=== PATIENT | female | born 1940 | race Caucasian/White ===

== ENCOUNTER 2018-04-09 18:12 | Inpatient (IN) ==
[2018-04-09] MEDS ORDERED: KETOROLAC 30 MG/1 ML VIAL IV STA (19:43)
[2018-04-09 21:06] LABS: Basophils % 0.5 % (0.0-0.8); Eosinophils % 0.7 % (0.00-10.9); Hematocrit 36.5 VOL% (35.7-47.0); Hemoglobin 11.8 GM/DL (12.0-16.0); Immature Granulocytes % 0.5 %; Immature Granulocytes Absolute 0.02 #; Lymphocytes # 0.4 10*3/uL (1.4-4.0); Mean Corpuscular HGB Conc 32.3 GM/DL (32-36); Mean Corpuscular Hemoglobin 30 PG (27-34); Mean Corpuscular Volume 94.1 FL (87-102); Monocytes # 0.3 10*3/uL (0.11-0.8); Monocytes % 6.5 % (1.7-12.7); Neutrophils # 3.5 10*3/uL (1.4-7.4); Neutrophils % 81.8 % (38.7-73.9); Platelet Count 171 T/CUMM (130-400); Red Blood Count 3.88 MC/CUMM (3.8-5.5); Red Cell Distribution Width 13.8 % (9.3-17.3); White Blood Count 4.3 T/CUMM (4-12)
[2018-04-09 21:40] LABS: Alanine Aminotransferase 15 U/L (13-56); Albumin 3.2 G/DL (3.4-5.0); Alkaline Phosphatase 111 U/L (45-117); Aspartate Amino Transferase 29 U/L (0-37); Bilirubin,Total < 0.39 MG/DL (0.2-1.0); Blood Urea Nitrogen 14 MG/DL (7-18); Calcium 7.7 MG/DL (8.5-10.1); Glucose 98 MG/DL (74-106); Osmolality,Calculated 288.7 MOS/KG (273-304); Potassium 3.5 MMOL/L (3.5-5.1); Sodium 145 MMOL/L (136-145); Total Protein 6.2 G/DL (6.4-8.3)
[2018-04-09 22:10] LABS: Apearance,Urine CLEAR (Clear); Bilirubin,Urine Negative (Negative); Blood, Urine Small mg/dL (Negative); Glucose,Urine (UA) Negative (Negative); Ketones,Urine 5 mg/dL (Negative); Nitrite,Urine Negative (Negative); Protein,Urine Negative; RBC,Urine 1 /HPF (0-4); Urine Color Straw (Yellow); Urine Specific Gravity 1.005 (1.001-1.035); Urine Urobilinogen < 2.0 EU/DL (0.2-1.0); WBC,Urine <1 /HPF (0-6)
[2018-04-09] MEDS ORDERED: ONDANSETRON 4 MG/2 ML VIAL IV PRN (22:51)
[2018-04-09] MEDS ORDERED: ACETAMINOPHEN 325 MG TABLET PO PRN (22:51)
[2018-04-09] MEDS ORDERED: MORPHINE 4 MG/1 ML VIAL IV PRN (22:51)
[2018-04-09] MEDS ORDERED: diphenhydrAMINE CAP 25 MG CAPSULE PO PRN (22:51)
[2018-04-09] MEDS ORDERED: BISACODYL 5 MG TABLET PO PRN (22:51)
[2018-04-09] MEDS ORDERED: NICOTINE 21 MG/24 HR PATCH TRANSDERM PRN (22:51)
[2018-04-09] MEDS ORDERED: HALOPERIDOL 5 MG/ML AMP ONE (23:14)
[2018-04-09] MEDS ORDERED: HALOPERIDOL 5 MG/ML AMP IM ONE (23:17)
[2018-04-10] MEDS ORDERED: INFLUENZA VIRUS VACCINE 0.5 ML SYRINGE IM ONE (00:07)
[2018-04-10] MEDS: SODIUM CHLORIDE 0.9% 1,000 ML IV SCH ×2 (00:24→14:38)
[2018-04-10] MEDS: MEMANTINE 10 MG TABLET PO SCH ×3 (01:45→20:44)
[2018-04-10 05:08] LABS: Free T4 (Free Thyroxine) 0.71 NG/DL (0.76-1.46); Thyroid Stimulating Hormone 1.36 uIU/ml (0.358-3.74)
[2018-04-10 07:46] LABS: Basophils % 0.5 % (0.0-0.8); Eosinophils # 0.1 10*3/uL (0.0-0.87); Eosinophils % 2.6 % (0.00-10.9); Hematocrit 34.8 VOL% (35.7-47.0); Hemoglobin 11.3 GM/DL (12.0-16.0); Immature Granulocytes % 0.5 %; Immature Granulocytes Absolute 0.02 #; Lymphocytes # 0.8 10*3/uL (1.4-4.0); Lymphocytes % 19.9 % (21.3-54.2); Mean Corpuscular HGB Conc 32.5 GM/DL (32-36); Mean Corpuscular Hemoglobin 31 PG (27-34); Mean Corpuscular Volume 95.1 FL (87-102); Mean Platelet Volume 9.5 FL (9.6-12.0); Monocytes # 0.5 10*3/uL (0.11-0.8); Neutrophils # 2.5 10*3/uL (1.4-7.4); Neutrophils % 64.5 % (38.7-73.9); Platelet Count 165 T/CUMM (130-400); Red Blood Count 3.66 MC/CUMM (3.8-5.5); White Blood Count 3.9 T/CUMM (4-12)
[2018-04-10 07:57] LABS: Alanine Aminotransferase 15 U/L (13-56); Albumin 2.9 G/DL (3.4-5.0); Alkaline Phosphatase 103 U/L (45-117); Aspartate Amino Transferase 26 U/L (0-37); Bilirubin,Total < 0.39 MG/DL (0.2-1.0); Blood Urea Nitrogen 14 MG/DL (7-18); Calcium 7.9 MG/DL (8.5-10.1); Glucose 91 MG/DL (74-106); Osmolality,Calculated 288.7 MOS/KG (273-304); Potassium 3.1 MMOL/L (3.5-5.1); Sodium 145 MMOL/L (136-145); Total Protein 6.2 G/DL (6.4-8.3)
[2018-04-10] MEDS: DONEPEZIL 10 MG TABLET PO SCH (10:20)
[2018-04-10] MEDS: ESCITALOPRAM 10 MG TABLET PO SCH (10:21)
[2018-04-10] MEDS: GABAPENTIN 100 MG CAPSULE PO SCH (10:21)
[2018-04-10] MEDS: OLANZapine 2.5 MG TABLET PO SCH (10:21)
[2018-04-10] MEDS: PANTOPRAZOLE 40 MG TABLET PO SCH (10:21)
[2018-04-10] MEDS: traZODone 50 MG TABLET PO PRN (21:53)
[2018-04-11 06:32] LABS: Basophils % 0.6 % (0.0-0.8); Eosinophils # 0.1 10*3/uL (0.0-0.87); Eosinophils % 3.2 % (0.00-10.9); Hematocrit 37.6 VOL% (35.7-47.0); Hemoglobin 11.8 GM/DL (12.0-16.0); Immature Granulocytes % 0.6 %; Immature Granulocytes Absolute 0.02 #; Lymphocytes # 0.8 10*3/uL (1.4-4.0); Lymphocytes % 21.8 % (21.3-54.2); Mean Corpuscular HGB Conc 31.4 GM/DL (32-36); Mean Corpuscular Hemoglobin 31 PG (27-34); Mean Corpuscular Volume 97.4 FL (87-102); Mean Platelet Volume 9.5 FL (9.6-12.0); Monocytes # 0.5 10*3/uL (0.11-0.8); Monocytes % 13.2 % (1.7-12.7); Neutrophils # 2.1 10*3/uL (1.4-7.4); Neutrophils % 60.6 % (38.7-73.9); Platelet Count 150 T/CUMM (130-400); Red Blood Count 3.86 MC/CUMM (3.8-5.5); Red Cell Distribution Width 14.1 % (9.3-17.3); White Blood Count 3.5 T/CUMM (4-12)
[2018-04-11] MEDS: SODIUM CHLORIDE 0.9% 1,000 ML IV SCH ×2 (06:53→16:14)
[2018-04-11 06:56] LABS: Albumin 2.7 G/DL (3.4-5.0); Bilirubin,Total 0.4 MG/DL (0.2-1.0); Calcium 8.1 MG/DL (8.5-10.1); Osmolality,Calculated 286.7 MOS/KG (273-304); Potassium 3.5 MMOL/L (3.5-5.1)
[2018-04-11] MEDS: DONEPEZIL 10 MG TABLET PO SCH (08:57)
[2018-04-11] MEDS: OLANZapine 2.5 MG TABLET PO SCH (08:57)
[2018-04-11] MEDS: MEMANTINE 10 MG TABLET PO SCH ×2 (08:58→20:51)
[2018-04-11] MEDS: GABAPENTIN 100 MG CAPSULE PO SCH (08:58)
[2018-04-11] MEDS: ESCITALOPRAM 10 MG TABLET PO SCH (08:58)
[2018-04-11] MEDS: PANTOPRAZOLE 40 MG TABLET PO SCH (08:58)
[2018-04-11] MEDS ORDERED: TISSUE ADHESIVE 1 EACH APPLICATOR TOP ONE (11:29)
[2018-04-11] MEDS ORDERED: ROPIVACAINE 0.5% 30 ML VIAL ONE (11:29)
[2018-04-11] MEDS ORDERED: MIDAZOLAM 2 MG/2 ML VIAL ONE (13:02)
[2018-04-11] MEDS ORDERED: fentaNYL 100 MCG/2 ML VIAL ONE (13:02)
[2018-04-11] MEDS ORDERED: PROPOFOL 200 MG/20 ML VIAL IV ONE (13:02)
[2018-04-11] MEDS ORDERED: KETAMINE 500 MG/10 ML VIAL ONE (13:03)
[2018-04-11] MEDS ORDERED: ETOMIDATE 40 MG/20 ML VIAL IV ONE (13:03)
[2018-04-11] MEDS: traZODone 50 MG TABLET PO PRN (23:28)
[2018-04-12] MEDS: SODIUM CHLORIDE 0.9% 1,000 ML IV SCH (04:04)
[2018-04-12 05:14] LABS: Basophils % 0.4 % (0.0-0.8); Eosinophils % 0.8 % (0.00-10.9); Hematocrit 36.7 VOL% (35.7-47.0); Hemoglobin 11.7 GM/DL (12.0-16.0); Immature Granulocytes % 0.6 %; Immature Granulocytes Absolute 0.03 #; Lymphocytes # 0.7 10*3/uL (1.4-4.0); Lymphocytes % 14.7 % (21.3-54.2); Mean Corpuscular HGB Conc 31.9 GM/DL (32-36); Mean Corpuscular Hemoglobin 31 PG (27-34); Mean Corpuscular Volume 95.6 FL (87-102); Mean Platelet Volume 9.3 FL (9.6-12.0); Monocytes # 0.6 10*3/uL (0.11-0.8); Monocytes % 11.9 % (1.7-12.7); Neutrophils # 3.6 10*3/uL (1.4-7.4); Neutrophils % 71.6 % (38.7-73.9); Platelet Count 155 T/CUMM (130-400); Red Blood Count 3.84 MC/CUMM (3.8-5.5); Red Cell Distribution Width 13.4 % (9.3-17.3)
[2018-04-12 05:46] LABS: Albumin 2.9 G/DL (3.4-5.0); Bilirubin,Total 0.9 MG/DL (0.2-1.0); Calcium 8.3 MG/DL (8.5-10.1); Potassium 3.1 MMOL/L (3.5-5.1); Total Protein 6.2 G/DL (6.4-8.3)
[2018-04-12] MEDS: DONEPEZIL 10 MG TABLET PO SCH (09:31)
[2018-04-12] MEDS: GABAPENTIN 100 MG CAPSULE PO SCH (09:31)
[2018-04-12] MEDS: MEMANTINE 10 MG TABLET PO SCH (09:31)
[2018-04-12] MEDS: PANTOPRAZOLE 40 MG TABLET PO SCH (09:31)
[2018-04-12] MEDS: OLANZapine 2.5 MG TABLET PO SCH (09:31)
[2018-04-12] MEDS: ESCITALOPRAM 10 MG TABLET PO SCH (09:31)
[2018-04-12 16:30] VITALS: BP 171/83
== END 2018-04-12 17:50 | disposition home or self-care (01) | DRG 478 ==
LOC: EDBD → EDUNIT# → N.EDINP 18:12 → N.ED 18:12 → N.3E 23:16 → SUATTDRO 04-10 15:19
PROVIDERS: ADMIT Internal Medicine; ATTEND Internal Medicine

== ENCOUNTER 2018-04-16 17:55 | Inpatient (IN) ==
[2018-04-16] MEDS ORDERED: METHOCARBAMOL INJ 1,000 MG in SODIUM CHLORIDE 0.9% 100 ML IV STA (18:55)
[2018-04-16] MEDS ORDERED: METHOCARBAMOL 1,000 MG/10 ML VIAL ONE (19:30)
[2018-04-16] MEDS ORDERED: MORPHINE 4 MG/1 ML VIAL IV PRN (19:48)
[2018-04-16] MEDS ORDERED: ACETAMINOPHEN 325 MG TABLET PO PRN (19:48)
[2018-04-16] MEDS ORDERED: ONDANSETRON 4 MG/2 ML VIAL IV PRN (19:48)
[2018-04-16] MEDS ORDERED: DOCUSATE SODIUM 100 MG CAPSULE PO PRN (19:48)
[2018-04-16 19:55] LABS: Basophils % 0.5 % (0.0-0.8); Eosinophils # 0.1 10*3/uL (0.0-0.87); Eosinophils % 3.2 % (0.00-10.9); Hematocrit 41.5 VOL% (35.7-47.0); Hemoglobin 13.6 GM/DL (12.0-16.0); Immature Granulocytes % 0.5 %; Immature Granulocytes Absolute 0.02 #; Lymphocytes # 0.7 10*3/uL (1.4-4.0); Mean Corpuscular HGB Conc 32.8 GM/DL (32-36); Mean Corpuscular Hemoglobin 31 PG (27-34); Mean Corpuscular Volume 93.5 FL (87-102); Mean Platelet Volume 9.1 FL (9.6-12.0); Monocytes # 0.5 10*3/uL (0.11-0.8); Monocytes % 12.6 % (1.7-12.7); Neutrophils # 2.8 10*3/uL (1.4-7.4); Neutrophils % 67.2 % (38.7-73.9); Platelet Count 217 T/CUMM (130-400); Red Blood Count 4.44 MC/CUMM (3.8-5.5); Red Cell Distribution Width 13.2 % (9.3-17.3); White Blood Count 4.1 T/CUMM (4-12)
[2018-04-16 20:05] LABS: Partial Thromboplastin Time 28.9 SECS (0-40)
[2018-04-16 20:18] LABS: Alanine Aminotransferase 24 U/L (13-56); Albumin 3.1 G/DL (3.4-5.0); Alkaline Phosphatase 138 U/L (45-117); Aspartate Amino Transferase 34 U/L (0-37); Bilirubin,Total < 0.39 MG/DL (0.2-1.0); Blood Urea Nitrogen 6 MG/DL (7-18); Glucose 105 MG/DL (74-106); Osmolality,Calculated 285.7 MOS/KG (273-304); Potassium 2.7 MMOL/L (3.5-5.1); Sodium 145 MMOL/L (136-145); Total Protein 7.2 G/DL (6.4-8.3)
[2018-04-17] MEDS ORDERED: traZODone 50 MG TABLET PO PRN (01:09)
[2018-04-17] MEDS: SODIUM CHLORIDE 0.9% 1,000 ML IV SCH ×2 (01:46→16:20)
[2018-04-17] MEDS: MEMANTINE 10 MG TABLET PO SCH ×3 (01:46→21:22)
[2018-04-17 05:29] LABS: Basophils % 0.5 % (0.0-0.8); Eosinophils # 0.2 10*3/uL (0.0-0.87); Eosinophils % 4.4 % (0.00-10.9); Hematocrit 39.7 VOL% (35.7-47.0); Hemoglobin 12.6 GM/DL (12.0-16.0); Immature Granulocytes % 0.5 %; Immature Granulocytes Absolute 0.02 #; Lymphocytes # 0.6 10*3/uL (1.4-4.0); Lymphocytes % 15.4 % (21.3-54.2); Mean Corpuscular HGB Conc 31.7 GM/DL (32-36); Mean Corpuscular Hemoglobin 30 PG (27-34); Mean Corpuscular Volume 95.2 FL (87-102); Mean Platelet Volume 9.2 FL (9.6-12.0); Monocytes # 0.5 10*3/uL (0.11-0.8); Monocytes % 12.6 % (1.7-12.7); Neutrophils # 2.6 10*3/uL (1.4-7.4); Neutrophils % 66.6 % (38.7-73.9); Platelet Count 199 T/CUMM (130-400); Red Blood Count 4.17 MC/CUMM (3.8-5.5); Red Cell Distribution Width 13.4 % (9.3-17.3); White Blood Count 3.9 T/CUMM (4-12)
[2018-04-17] MEDS: POTASSIUM CHLORIDE RIDER 10 MEQ in PREMIX 1 EACH IV SCH ×6 (05:30→13:22)
[2018-04-17 05:46] LABS: Calcium 8.7 MG/DL (8.5-10.1); Osmolality,Calculated 285.7 MOS/KG (273-304); Potassium 2.9 MMOL/L (3.5-5.1)
[2018-04-17] MEDS: DONEPEZIL 10 MG TABLET PO SCH (08:21)
[2018-04-17] MEDS: OLANZapine 2.5 MG TABLET PO SCH (08:22)
[2018-04-17] MEDS: ESCITALOPRAM 10 MG TABLET PO SCH (08:22)
[2018-04-17] MEDS: GABAPENTIN 100 MG CAPSULE PO SCH (08:22)
[2018-04-18] MEDS: SODIUM CHLORIDE 0.9% 1,000 ML IV SCH (01:12)
[2018-04-18 05:38] LABS: Basophils % 0.3 % (0.0-0.8); Eosinophils # 0.1 10*3/uL (0.0-0.87); Eosinophils % 4.2 % (0.00-10.9); Hematocrit 35.1 VOL% (35.7-47.0); Hemoglobin 11.1 GM/DL (12.0-16.0); Immature Granulocytes % 0.3 %; Immature Granulocytes Absolute 0.01 #; Lymphocytes # 0.6 10*3/uL (1.4-4.0); Lymphocytes % 17.2 % (21.3-54.2); Mean Corpuscular HGB Conc 31.6 GM/DL (32-36); Mean Corpuscular Hemoglobin 30 PG (27-34); Mean Corpuscular Volume 95.9 FL (87-102); Mean Platelet Volume 9.9 FL (9.6-12.0); Monocytes # 0.5 10*3/uL (0.11-0.8); Monocytes % 13.9 % (1.7-12.7); Neutrophils # 2.2 10*3/uL (1.4-7.4); Neutrophils % 64.1 % (38.7-73.9); Platelet Count 201 T/CUMM (130-400); Red Blood Count 3.66 MC/CUMM (3.8-5.5); Red Cell Distribution Width 13.3 % (9.3-17.3); White Blood Count 3.4 T/CUMM (4-12)
[2018-04-18 06:02] LABS: Calcium 8.6 MG/DL (8.5-10.1); Osmolality,Calculated 283.8 MOS/KG (273-304); Potassium 2.9 MMOL/L (3.5-5.1)
[2018-04-18] MEDS: POTASSIUM CHLORIDE RIDER 10 MEQ in PREMIX 1 EACH IV PRN ×4 (08:16→11:30)
[2018-04-18] MEDS: GABAPENTIN 100 MG CAPSULE PO SCH (08:35)
[2018-04-18] MEDS: DONEPEZIL 10 MG TABLET PO SCH (08:35)
[2018-04-18] MEDS: OLANZapine 2.5 MG TABLET PO SCH (08:35)
[2018-04-18] MEDS: MEMANTINE 10 MG TABLET PO SCH ×2 (08:35→21:28)
[2018-04-18] MEDS: ESCITALOPRAM 10 MG TABLET PO SCH (08:35)
[2018-04-18] MEDS: POTASSIUM CHLORIDE 20 MEQ TABLET PO PRN ×2 (21:28→23:40)
[2018-04-19 05:41] LABS: Calcium 8.8 MG/DL (8.5-10.1); Osmolality,Calculated 285.7 MOS/KG (273-304); Potassium 3.9 MMOL/L (3.5-5.1)
[2018-04-19] MEDS: OLANZapine 2.5 MG TABLET PO SCH (08:45)
[2018-04-19] MEDS: MEMANTINE 10 MG TABLET PO SCH (08:45)
[2018-04-19] MEDS: ESCITALOPRAM 10 MG TABLET PO SCH (08:45)
[2018-04-19] MEDS: DONEPEZIL 10 MG TABLET PO SCH (08:45)
[2018-04-19] MEDS: GABAPENTIN 100 MG CAPSULE PO SCH (08:45)
[2018-04-19] MEDS: POTASSIUM CHLORIDE 20 MEQ TABLET PO PRN (08:46)
[2018-04-19 11:12] VITALS: BP 136/70
== END 2018-04-19 12:05 | DRG 552 ==
LOC: EDBD → EDUNIT# → N.ED 17:55 → N.EDINP 19:46 → N.3E 04-17 00:19
PROVIDERS: ADMIT Internal Medicine; ATTEND Internal Medicine

== ENCOUNTER 2022-03-22 12:48 | Inpatient (IN) ==
[2022-03-22] MEDS ORDERED: ONDANSETRON 4 MG/2 ML VIAL ONE (13:32)
[2022-03-22] MEDS ORDERED: MORPHINE 2 MG/1 ML SYRINGE ONE (13:32)
[2022-03-22 13:41] LABS: Basophils % 0.1 % (0.0-0.8); Eosinophils % 0.1 % (0.00-10.9); Hematocrit 38.9 VOL% (35.7-47.0); Hemoglobin 12.8 GM/DL (12.0-16.0); Immature Granulocytes % 0.7 %; Lymphocytes # 0.9 10*3/uL (1.4-4.0); Lymphocytes % 6.7 % (21.3-54.2); Mean Corpuscular HGB Conc 32.9 GM/DL (32-36); Mean Corpuscular Volume 91.7 FL (87-102); Mean Platelet Volume 8.9 FL (9.6-12.0); Monocytes # 0.7 10*3/uL (0.11-0.8); Monocytes % 4.9 % (1.7-12.7); Neutrophils % 87.5 % (38.7-73.9); Platelet Count 303 T/CUMM (130-400); Red Blood Count 4.24 MC/CUMM (3.8-5.5); Red Cell Distribution Width 13.8 % (9.3-17.3); White Blood Count 13.5 T/CUMM (4-12)
[2022-03-22] MEDS ORDERED: MORPHINE 2 MG/1 ML SYRINGE IV STA (13:47)
[2022-03-22] MEDS ORDERED: ONDANSETRON 4 MG/2 ML VIAL IV STA (13:47)
[2022-03-22 13:50] LABS: INR 0.9
[2022-03-22 13:55] LABS: Bacteria,Urine Occasional /HPF (Few); Mucus,Urine Occasional /LPF (Occasional); RBC,Urine 6 /HPF (0-4); Squamous Epithelial Cell,Urine Few /HPF (0-10); Urine Color Yellow (Yellow)
[2022-03-22 13:56] LABS: Bilirubin,Urine Negative (Negative); Blood, Urine Trace mg/dL (Negative); Glucose,Urine (UA) Negative (Negative); Ketones,Urine 40 mg/dL (Negative); Nitrite,Urine Positive (Negative); Protein,Urine Negative (Negative); Urine Appearance Clear (Clear); Urine pH 7.5 (4.5-8.0)
[2022-03-22] MEDS ORDERED: cefTRIAXone 1,000 MG in SODIUM CHLORIDE 0.9% 100 ML IV STA (14:00)
[2022-03-22 14:02] LABS: Alanine Aminotransferase 20 U/L (13-56); Albumin 3.2 G/DL (3.4-5.0); Alkaline Phosphatase 100 U/L (45-117); Aspartate Amino Transferase 21 U/L (0-37); Bilirubin,Total < 0.39 MG/DL (0.20-1.00); Blood Urea Nitrogen 19 MG/DL (7-18); Carbon Dioxide 28 MMOL/L (21-32); Chloride 108 MMOL/L (98-107); Glucose 125 MG/DL (74-106); Osmolality,Calculated 285.1 MOS/KG (273-304); Potassium 3.9 MMOL/L (3.5-5.1); Sodium 142 MMOL/L (136-145); Total Protein 7.4 G/DL (6.4-8.2)
[2022-03-22 14:21] LABS: Barbiturates Screen,Urine Negative (Negative); Benzodiazepines Screen,Urine Negative (Negative); Cannabinoid Screen,Urine Negative (Negative); Opiate Screen,Urine Positive (Negative); Phencyclidine Screen,Urine Negative (Negative)
[2022-03-22] MEDS ORDERED: MORPHINE 2 MG/1 ML SYRINGE IV PRN (15:08)
[2022-03-22] MEDS ORDERED: DOCUSATE SODIUM 100 MG CAPSULE PO PRN (15:08)
[2022-03-22] MEDS ORDERED: ONDANSETRON 4 MG/2 ML VIAL IV PRN (15:08)
[2022-03-22] MEDS ORDERED: cefTRIAXone 1,000 MG in SODIUM CHLORIDE 0.9% 100 ML IV SCH (15:30)
[2022-03-22] MEDS: SODIUM CHLORIDE 0.9% 1,000 ML IV SCH (16:07)
[2022-03-23 05:47] LABS: Basophils % 0.1 % (0.0-0.8); Eosinophils % 0.1 % (0.00-10.9); Hematocrit 33.1 VOL% (35.7-47.0); Hemoglobin 10.8 GM/DL (12.0-16.0); Immature Granulocytes % 0.4 %; Immature Granulocytes Absolute 0.03 #; Lymphocytes # 1.3 10*3/uL (1.4-4.0); Lymphocytes % 15.5 % (21.3-54.2); Mean Corpuscular HGB Conc 32.6 GM/DL (32-36); Mean Corpuscular Volume 92.7 FL (87-102); Mean Platelet Volume 8.6 FL (9.6-12.0); Monocytes % 11.4 % (1.7-12.7); Neutrophils % 72.5 % (38.7-73.9); Platelet Count 242 T/CUMM (130-400); Red Blood Count 3.57 MC/CUMM (3.8-5.5); Red Cell Distribution Width 14.1 % (9.3-17.3); White Blood Count 8.5 T/CUMM (4-12)
[2022-03-23] MEDS ORDERED: VANCOMYCIN INJ 1,000 MG in SODIUM CHLORIDE 0.9% 250 ML IV ONE (06:00)
[2022-03-23 06:08] LABS: Calcium 8.6 MG/DL (8.5-10.1); Potassium 3.9 MMOL/L (3.5-5.1)
[2022-03-23] MEDS: SODIUM CHLORIDE 0.9% 1,000 ML IV SCH (10:37)
[2022-03-23] MEDS ORDERED: LIDOCAINE 2% 5 ML VIAL ONE (11:19)
[2022-03-23] MEDS ORDERED: SODIUM CHLORIDE 0.9% 100 ML IV ONE (11:19)
[2022-03-23] MEDS ORDERED: propofoL 200 MG/20 ML VIAL IV ONE (11:19)
[2022-03-23] MEDS ORDERED: KETAMINE 500 MG/10 ML VIAL ONE (11:20)
[2022-03-23] MEDS ORDERED: DEXAMETHASONE 4 MG/1 ML VIAL ONE (11:25)
[2022-03-23] MEDS ORDERED: LIDOCAINE 1% 5 ML VIAL ONE (11:26)
[2022-03-23] MEDS ORDERED: ROPIVACAINE 0.5% 30 ML VIAL ONE (11:26)
[2022-03-23] MEDS ORDERED: fentaNYL 100 MCG/2 ML VIAL ONE (11:26)
[2022-03-23] MEDS ORDERED: MIDAZOLAM 2 MG/2 ML VIAL ONE (11:26)
[2022-03-23] MEDS ORDERED: buprenorphine HCL 0.3 MG/ML VIAL ONE (11:31)
[2022-03-23] MEDS ORDERED: PHENYLEPHRINE 10 MG/1 ML VIAL IV ONE (12:21)
[2022-03-23] MEDS ORDERED: LACTATED RINGERS 1,000 ML IV SCH (12:30)
[2022-03-23] MEDS ORDERED: BACITRACIN OINT 0.9 GM PACK TOP ONE (12:46)
[2022-03-23] MEDS ORDERED: TRANEXAMIC ACID 1,000 MG/10 ML VIAL ONE (12:53)
[2022-03-23] MEDS ORDERED: NEOMYCIN/POLYMYXIN/BACITRACIN OINT 28.4 GM TUBE TOP ONE (13:14)
[2022-03-23] MEDS: cefTRIAXone 1,000 MG in SODIUM CHLORIDE 0.9% 100 ML IV SCH (15:24)
[2022-03-23] MEDS: LACTATED RINGERS 1,000 ML IV SCH (15:24)
[2022-03-23] MEDS: KETOROLAC 15 MG/1 ML VIAL IV SCH ×2 (15:25→20:47)
[2022-03-23] MEDS ORDERED: ENOXAPARIN 40 MG/0.4 ML SYRINGE SUBCUT SCH (21:00)
[2022-03-24] MEDS: KETOROLAC 15 MG/1 ML VIAL IV SCH (03:20)
[2022-03-24] MEDS: LACTATED RINGERS 1,000 ML IV SCH ×2 (03:20→15:13)
[2022-03-24 05:30] LABS: Basophils % 0.1 % (0.0-0.8); Hematocrit 30.2 VOL% (35.7-47.0); Hemoglobin 9.8 GM/DL (12.0-16.0); Immature Granulocytes % 0.5 %; Immature Granulocytes Absolute 0.05 #; Lymphocytes # 1.3 10*3/uL (1.4-4.0); Lymphocytes % 12.7 % (21.3-54.2); Mean Corpuscular HGB Conc 32.5 GM/DL (32-36); Mean Corpuscular Volume 94.1 FL (87-102); Mean Platelet Volume 9.1 FL (9.6-12.0); Monocytes # 1.2 10*3/uL (0.11-0.8); Monocytes % 11.7 % (1.7-12.7); Platelet Count 211 T/CUMM (130-400); Red Blood Count 3.21 MC/CUMM (3.8-5.5); Red Cell Distribution Width 13.6 % (9.3-17.3)
[2022-03-24 06:03] LABS: Calcium 8.5 MG/DL (8.5-10.1); Osmolality,Calculated 286.8 MOS/KG (273-304); Potassium 3.8 MMOL/L (3.5-5.1)
[2022-03-24] MEDS: FONDAPARINUX 2.5 MG/0.5 ML SYRINGE SUBCUT SCH (09:19)
[2022-03-24] MEDS: MAGNESIUM HYDROXIDE SUSP 30 ML UDCUP PO PRN (09:19)
[2022-03-24] MEDS: cefTRIAXone 1,000 MG in SODIUM CHLORIDE 0.9% 100 ML IV SCH (14:45)
[2022-03-25 05:43] LABS: Basophils % 0.2 % (0.0-0.8); Eosinophils # 0.1 10*3/uL (0.0-0.87); Eosinophils % 1.3 % (0.00-10.9); Hematocrit 29.5 VOL% (35.7-47.0); Hemoglobin 9.4 GM/DL (12.0-16.0); Immature Granulocytes % 0.4 %; Immature Granulocytes Absolute 0.03 #; Lymphocytes # 0.9 10*3/uL (1.4-4.0); Lymphocytes % 10.4 % (21.3-54.2); Mean Corpuscular HGB Conc 31.9 GM/DL (32-36); Mean Corpuscular Volume 93.9 FL (87-102); Mean Platelet Volume 8.9 FL (9.6-12.0); Monocytes # 1.1 10*3/uL (0.11-0.8); Monocytes % 12.4 % (1.7-12.7); Neutrophils % 75.3 % (38.7-73.9); Platelet Count 195 T/CUMM (130-400); Red Blood Count 3.14 MC/CUMM (3.8-5.5); Red Cell Distribution Width 13.7 % (9.3-17.3); White Blood Count 8.5 T/CUMM (4-12)
[2022-03-25 06:20] LABS: Calcium 8.5 MG/DL (8.5-10.1); Potassium 4.4 MMOL/L (3.5-5.1)
[2022-03-25] MEDS: LACTATED RINGERS 1,000 ML IV SCH (07:57)
[2022-03-25] MEDS: FONDAPARINUX 2.5 MG/0.5 ML SYRINGE SUBCUT SCH (08:49)
[2022-03-25] MEDS: MAGNESIUM HYDROXIDE SUSP 30 ML UDCUP PO PRN (08:49)
[2022-03-25 11:01] VITALS: BP 133/68
== END 2022-03-25 12:41 | disposition hospice, home (50) | DRG 522 ==
LOC: N.ED 12:48 → SUATTDRO 15:08 → N.EDINP 15:08 → N.3E 16:56 → N.TELEN 03-24 09:28
PROVIDERS: ADMIT Emergency Medicine; ATTEND Emergency Medicine